=== PATIENT | female | born 1980 ===

== ENCOUNTER 2021-07-08 16:27 | Outpatient (CLI) | payer OTHER ==
[2021-07-08 17:13] VITALS: BP 132/83
--- NOTE | 2021-07-08 17:13 | SLEEP CARE CONSULTATION ---
Information from patient questionnaire entered by Ga Vargas. I have reviewed and concur with the information entered by Ga Vargas. This document represents the service I personally performed and the decisions made by me, Charleen Victoria ARNP. History of Present Illness Service Date and Time: 07/08/2021 1627 Reason for Visit: New patient Chief Complaint: reports: Unrefreshed sleep, Snoring, Excessive daytime sleepiness, Fatigue. denies: Observed pauses in breathing, Frequent awakenings at night Date of Onset: 1 year Usual bedtime: 2100 Time it takes to fall asleep: 30 min Snores at night: Yes Observed to quit breathing while asleep: No Sleeps alone due to snoring: No Number of times waking at night: Once Reasons for waking at night: reports: Snoring, Other (Unknown reason). denies: Choking, Gasping for air Toss, Turn, or Twitch while sleeping: Yes Recalls having dreams: Yes Usually gets out of bed at: 0500; weekends 0900 Feels refreshed in the morning: No Morning headache: No Sleepy or fatigued during the day: Yes Ever fallen asleep while driving: No Takes day naps: No Dreams during day naps: No Prior sleep studies: No Additional HPI information: I had the pleasure of seeing GALE KING today regarding the possibility of her having a sleep disorder. Her current complaints are fatigue, snoring and unrefreshed sleep. She states she normally sleeps on her stomach. She states for the last year she is waking herself up snoring. Her has also complained about her snoring but no pauses in breathing. She states she always tired and does not feel rested when she wakes up in the morning. She states if she sits quietly she can fall asleep easily. She states she only wakes up once or twice during the night. She denies any morning headaches or drowsy driving. 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 Patient is and lives in [place]. Have you smoked in the past 12 months: No Alcohol use: Yes Alcohol amount and frequency: Occasionally Caffeine use: Yes Caffeine amount and frequency: 3 cups daily Family History Family history of sleep disordered breathing: Yes Family Hx Sleep Apnea: Father: Snoring Allergies and Home Medications Drug allergies reviewed: Yes (NKDA) Home medication list reviewed: Yes (no daily medications or supplements) Review of Systems Weight gain over past 5 years: 15 Cardiovascular: denies: high blood pressure Gastrointestinal: denies: heartburn Neurological: denies: headaches Psychiatric: denies: anxiety, depression, mood disorder Ear/Nose/Throat: denies: injury to nose, tonsillectomy Endocrine: denies: thyroid disease Musculoskeletal: reports: joint pain (stiffness) Immunologic: reports: allergies to food or environment (seasonal ) Physical Exam Blood Pressure: 132/83 Cuff size: wrist Heart Rate: 64 O2 Saturation: 98 Height: 5 ft 5 in Weight: 213 lb Body Mass Index: 35.4 BMI Classification: Obese Neck circumference: 15.5 (inches) Nostrils: patent to airflow Mouth and throat: narrow oropharynx Soft palate: long Hard palate: normal Uvula: normal Uvula visualization: 50% Mallampati Class II Tongue: enlarged in size with teeth mercado on lateral edges Tonsils: 1+ Neck: normal w/o lymphadenopathy or thyromegaly Heart: regular rate and rhythm Lungs: clear bilaterally Impression and Plan 1. Suspected Obstructive Sleep Apnea-Hypopnea Syndrome, as suggested by a history of loud and irregular snoring, unrefreshed sleep, cognitive impairment, and excessive daytime sleepiness. Narrow oropharynx and obesity are common p redisposing factors for obstructive sleep apnea-hypopnea syndrome. I recommend proceeding to polysomnography to confirm the diagnosis and to assess severity. If the patient has significant sleep disordered breathing, a manual CPAP titration study will also be performed to find the optimal treatment pressure. I informed the patient of what the sleep studies involve and after some discussion, obtained agreement to proceed. The pathophysiology of obstructive sleep apnea-hypopnea syndrome was discussed with the patient and health risks of cardiovascular and cerebrovascular disease if not treated. Risks of drowsy driving discussed in detail and patient advised to avoid long distance driving and to pull through hooker at the first sign of drowsiness. Patient agreed to plan. * Schedule polysomnography +- manual CPAP titration study and return in 1-2 weeks after the study to discuss result and initiate therapy. * Avoid long distance driving or driving when feeling sleepy. * Avoid alcohol, sedative and muscle relaxant around bedtime. * Attempt to lose weight. * Review instructions provided by trained office staff on how to prepare for the sleep study. * Return for follow-up after sleep study completed. Counseling Topics: Weight loss health impact Visit Type: In Office Time Spent with Patient (minutes): 30 Provider Statement: I spent 100% of the Face to Face Visit with the patient with greater than 50% spent counseling the patient and coordination of care.
== END 2021-07-08 16:28 | disposition home or self-care (01) ==
LOC: SC 16:27
PROVIDERS: ATTEND Nurse Practitioner Family
DX: R06.83 Snoring (principal); G47.8 Other sleep disorders; R41.89 Other symptoms and signs involving cognitive functions and awareness; G47.10 Hypersomnia, unspecified; E66.9 Obesity, unspecified; Z68.35 Body mass index [BMI] 35.0-35.9, adult
CPT/HCPCS: 99203; 99212

== ENCOUNTER 2021-07-22 07:46 | Outpatient (CLI) | payer OTHER | END 2021-07-22 07:47 | disposition home or self-care (01) | LOC: SC 07:46 | PROVIDERS: ATTEND Nurse Practitioner Family | DX: E66.9 Obesity, unspecified (principal); Z68.35 Body mass index [BMI] 35.0-35.9, adult | CPT/HCPCS: 95806 ==

== ENCOUNTER 2021-08-05 10:21 | Outpatient (CLI) | payer OTHER ==
--- NOTE | 2021-08-05 11:04 | SLEEP CARE CONSULTATION ---
Information from patient questionnaire entered by Gael Clay. I have reviewed and concur with the information entered by Gale Clay. This document represents the service I personally performed and the decisions made by , Charleen Victoria ARNP. History of Present Illness Service Date and Time: 08/05/2021 1021 Initial [place] Sleepiness Scale score: 9 (in 2020) Current [place] Sleepiness Scale score: 13 Additional HPI information: GALE KING returns for follow up and results of the recently performed home sleep study. The patient was informed of the following findings: No significant sleep disordered breathing with an average AHI of 1.0 and shelby oxygen saturation of 93%. Patient did not sleep supine during the study. I explained the pathophysiology behind obstructive sleep apnea. Patient does not have sleep apnea and was advised how weight gain could increase the risk of developing sleep apnea in the future. I strongly encouraged the patient to lose weight. Patient has moderate snoring. Snoring can be reduced by weight loss. Weight loss is best achieved with diet consult. Patient instructed to contact PCP for referral. Snoring can also be treated with an oral appliance from a dentist. Advised to check insurance coverage. In addition, an ENT evaluation can be do to see if other treatment is indicated. Patient counseled not drink alcohol less than 4 hours before bedtime as it can increase snoring and apnea. Patient was cautioned about risks of drowsy driving until sleepiness symptoms resolve. Sleep Study - Results Type of Sleep Study: Home sleep study Prior sleep studies: Yes Year and Where: 07/2021 [facility] Polysomnography/Home Sleep Study results: Physician Impression: The quality of the study is good. The length of the study is adequate (> 240 minutes). Please also see the tabulated and graphic data. 1. No significant sleep disordered breathing, with an AHI of 1.0/hr and shelby SaO2 of 93%. During the study, the patient had 6 apneas (4 obstructive, 0 central, 2 mixed) and 1 hypopnea. The longest episode lasted 24.0 seconds. The patient did not sleep supine during this study (supine AHI was 0.0 and nonsupine, 0.97). Allergies and Home Medications Home medication list reviewed: Yes (no changes) Review of Systems Review of systems same as previous: Yes (no changes) Physical Exam Heart Rate: 65 O2 Saturation: 98 Height: 5 ft 5 in Weight: 208 lb Body Mass Index: 34.6 BMI Classification: Obese Impression and Plan Snoring but no significant sleep disordered breathing. Patient advised that often weight loss will reduce snoring as well as apnea risk. An oral appliance can also be used for snoring. This would require a dental consultation. Patient cautioned not to use other online appliances as can cause bite issues. A list of accredited dentists in [facility] and one local dentist who makes oral appliances is available in the office. Patient is advised to check if insurance will cover. An ENT consult can also be helpful to determine if any other treatment is an option. * Attempt to lose weight * Avoid alcohol consumption near bedtime * The patient is cautioned about driving until sleepiness is completely resolved. * Return as needed. Counseling Topics: Weight loss health impact Visit Type: In Office Time Spent with Patient (minutes): 10 Provider Statement: I spent 100% of the Face to Face Visit with the patient with greater than 50% spent counseling the patient and coordination of care.
== END 2021-08-05 10:22 | disposition home or self-care (01) ==
LOC: SC 10:21
PROVIDERS: ATTEND Nurse Practitioner Family
DX: R06.83 Snoring (principal); E66.9 Obesity, unspecified; Z68.34 Body mass index [BMI] 34.0-34.9, adult
CPT/HCPCS: 99212

== ENCOUNTER 2022-11-11 14:00 | Outpatient (CLI) | payer OTHER ==
--- NOTE | 2022-11-12 09:31 | MRI Report ---
PROCEDURE: ANKLE WO - LT INDICATIONS: LEFT ANKLE PAIN TECHNIQUE: Noncontrast Magnetic Resonance Imaging (MRI) of the ankle/hindfoot was performed utilizing the follow ing sequences: sagittal T1 spin echo, sagittal STIR, axial PD fast spin echo, axial T2 fast spin echo with fat saturation, coronal T2 spin echo with fat saturation, and coronal PD fast spin echo with fa t saturation. COMPARISON: None. FINDINGS: Image quality: Excellent. Bones and joints: No acute trabecular bone injury or fracture. No hindfoot coalition. The ankle mortise is maintained. No osteochondral defect is seen at the talar dome. Mild degenerative spurring seen at the dorsal asp ect of the joint. Medial structures: The deltoid ligament and the spring ligament are intact. Small amount of fluid is seen within the pos terior tibialis, flexor digitorum longus, and flexor hallucis longus tendon sheaths, which is greater than the degree of mortise joint effusion and may indicate tenosynovitis. The posterior tibial neur ovascular bundle appears normal within the tarsal tunnel, without extrinsic mass effect. Lateral structures: The anterior and posterior distal tibiofibular ligaments are intact. No prior low-grade sprains of th e anterior talofibular ligament and calcaneofibular ligament. The posterior talofibular ligament linda ins intact. The peroneus longus and peroneus brevis tendons demonstrate mild tenosynovitis. The sinus tarsi demonstrates normal fatty signal. Anterior structures: The tibialis anterior, extensor hallucis longus, and extensor digitorum longus tendons appear intact. Small ganglion cysts are seen dorsal to the navicular cuneiform articulations measuring approximate ly 9 mm and 5 mm and greatest dimensions respectively. Posterior and plantar structures: The Achilles tendon inserts mild tendinosis. Very mild osseous edema in the posterior calcaneus may b e related to traction trabecular bone injury from the Achilles tendon insertion. There is mild thicke chitra of the proximal plantar fascia-without surrounding edema, consistent with chronic fasciitis. A n onedematous plantar calcaneal enthesophyte is present. No disproportionate atrophy of the abductor di clyde minimi muscle. IMPRESSION: 1.Mild to moderate tenosynovitis of the posterior tibialis, flexor digitorum longus, and flexor hallu cis longus tendons. 2.Mild peroneus brevis and longus tenosynovitis. 3.Remote prior low-grade sprains of the calcaneofibular ligament and anterior talofibular ligament. 4.Mild distal Achilles tendinosis with mild traction osseous edema at its insertion onto the posterio r calcaneus. 5.Mild chronic proximal plantar fasciitis. 6.Small ganglion cysts at the dorsum of the foot adjacent to the navicular cuneiform articulations. Reviewed by: Lino Luu MD on 11/12/2022 9:30 AM PST Approved by: Lino Luu MD on 11/12/2022 9:30 AM PST Station ID: [id number]
== END 2022-11-11 14:01 | disposition home or self-care (01) ==
LOC: DI 14:00
PROVIDERS: ATTEND Podiatrist
DX: M65.872 Other synovitis and tenosynovitis, left ankle and foot (principal); M76.62 Achilles tendinitis, left leg; M72.2 Plantar fascial fibromatosis; M67.472 Ganglion, left ankle and foot